=== PATIENT | male | born 1965 | race American Indian/Alaskan Native ===

== ENCOUNTER 2018-09-04 19:52 | Emergency (ER) | payer SELFPAY ==
[2018-09-04 19:52] VITALS: BMI 26.2
[2018-09-04 20:10] VITALS: RESP 20
[2018-09-04] MEDS ORDERED: Sodium Chloride 0.9% 2,000 ML IV ONE (20:35)
--- NOTE | 2018-09-04 20:35 | C.PDOC ---
History Of Present Illness The patient presents to the ED for evaluation of elevated blood sugar levels. Patient reports levels have been in 400s. He admits to being under a lot of stress and not eating well. Patient denies fever, chills, nausea, vomiting. Time Seen by Provider: 09/04/18 20:34 Chief Complaint (Nursing): High Blood Sugar History Per: Patient History/Exam Limitations: no limitations Onset/Duration Of Symptoms: Hrs Current Symptoms Are (Timing): Still Present Causative (Exacerbating) Factor(s): Missed A Meal, Other (increased stress ) Associated Infectious Symptoms: denies: Nausea, Vomiting Additional History Per: Patient Past Medical History Reviewed: Historical Data, Nursing Documentation, Vital Signs Vital Signs: Last Vital Signs Temp 98 F 09/04/18 20:01 Pulse 96 H 09/04/18 20:01 Resp 20 09/04/18 20:01 BP 144/76 09/04/18 20:01 Pulse Ox 100 09/04/18 20:01 - Medical History PMH: Diabetes Surgical History: No Surg Hx Family History: States: Unknown Family Hx - Social History Hx Tobacco Use: No Hx Alcohol Use: No Hx Substance Use: No - Immunization History Hx Tetanus Toxoid Vaccination: No Hx Influenza Vaccination: No Hx Pneumococcal Vaccination: No Review Of Systems Constitutional: Positive for: Other (elevated blood sugar levels ). Negative for: Fever, Chills Cardiovascular: Negative for: Chest Pain, Palpitations Respiratory: Negative for: Cough, Shortness of Breath Gastrointestinal: Negative for: Nausea, Vomiting, Abdominal Pain Genitourinary: Negative for: Dysuria, Frequency, Hematuria Skin: Negative for: Rash, Lesions, Jaundice, Bruising Neurological: Negative for: Weakness, Numbness, Confusion, Altered Mental Status, Headache, Dizziness Physical Exam - Physical Exam Appears: Non-toxic, No Acute Distress Skin: Warm, Dry Head: Normacephalic Eye(s): bilateral: Normal Inspection Oral Mucosa: Moist Neck: Supple Chest: Symmetrical, No Deformity, No Tenderness Cardiovascular: Rhythm Regular, No Murmur Respiratory: No Rales, No Rhonchi, No Wheezing Extremity: Normal ROM, Capillary Refill (less than 2 seconds ) Neurological/Psych: Oriented x3 ED Course And Treatment - Laboratory Results Result Diagrams: 09/04/18 20:40 09/04/18 20:40 O2 Sat by Pulse Oximetry: 100 (on RA ) Pulse Ox Interpretation: Normal Progress Note: bloodwork and urinalysis ordered. IV Fluids given. Reevaluation Time: 00:12 Reassessment Condition: Improved Disposition Counseled Patient/Family Regarding: Studies Performed, Diagnosis, Need For Followup - Disposition Referrals: Nighat Choi MD [Staff Provider] - Disposition: HOME/ ROUTINE Disposition Time: 20:35 Condition: FAIR Additional Instructions: Please check your sugars at least 4 times a day and keep a record Instructions: Hyperglycemia, Adult (DC) Forms: [employer] ([place]) - Clinical Impression Clinical Impression: Hyperglycemia - Scribe Statement The provider has reviewed the documentation as recorded by the Scribe (Ciera Marino) Provider Attestation: All medical record entries made by the Scribe were at my direction and personally dictated by me. I have reviewed the chart and agree that the record a ccurately reflects my personal performance of the history, physical exam, medical decision making, and the department course for this patient. I have also personally directed, reviewed, and agree with the discharge instructions and disposition.
[2018-09-04 20:52] LABS: BASO % 0.8 % (0.0-2.0); EOS % 0.6 % (0.0-4.0); LYMPH # 2.2 K/uL (1.0-4.3); LYMPH % 36.4 % (20.0-40.0); MEAN CORPUSCULAR HEMOGLOBIN 27.2 pg (27.0-31.0); MEAN CORPUSCULAR HGB CONC 32.5 g/dL (33.0-37.0); MONO # 0.3 K/uL (0.0-0.8); MONO % 5.8 % (0.0-10.0); NEUT # 3.3 K/uL (1.8-7.0); NEUT % 56.4 % (50.0-75.0); RBC 5.51 Mil/uL (4.40-5.90); RED CELL DISTRIBUTION WIDTH 13.8 % (11.5-14.5); WHITE BLOOD COUNT 5.9 K/uL (4.8-10.8)
[2018-09-04 20:54] LABS: MEAN CELL VOLUME 83.9 fL (80.0-94.0)
[2018-09-04 21:01] LABS: VENOUS BLOOD GAS BASE EXCESS -1.7 mmol/L (0.0-2.0); VENOUS BLOOD GAS PCO2 34 mmHg (40-60); VENOUS BLOOD GAS PO2 63 mm/Hg (30-55); VENOUS BLOOD PH 7.42 (7.32-7.43)
[2018-09-04 21:08] LABS: ALB/GLOB RATIO 1.6 (1.0-2.1); ALBUMIN 4.9 g/dL (3.5-5.0); ALT/SGPT 17 U/L (21-72); AST/SGOT 41 U/L (17-59); BLOOD UREA NITROGEN 13 mg/dL (9-20); CALCIUM 9.4 mg/dl (8.6-10.4); GFR NON-AFRICAN AMERICAN > 60; LIPASE 81 U/L (23-300)
[2018-09-04] MEDS ORDERED: Sodium Chloride 0.9% 2,000 ML ONE (21:54)
[2018-09-04 22:08] LABS: SQUAMOUS EPITHIAL < 1 /hpf (0-5); URINE BILIRUBIN NEGATIVE (NEGATIVE); URINE BLOOD NEGATIVE (NEGATIVE); URINE CLARITY Clear (Clear); URINE COLOR Straw (YELLOW); URINE GLUCOSE (UA) 3+ mg/dL (Normal); URINE LEUKOCYTE ESTERASE NEG Leu/uL (Negative); URINE PROTEIN NEGATIVE (NEGATIVE); URINE UROBILINOGEN NORMAL mg/dL (0.2-1.0)
[2018-09-05 00:40] VITALS: BP 136/74; PULSE 92; TEMP 97.9; O2SAT 98
== END 2018-09-05 00:39 | disposition home or self-care (01) ==
LOC: C.ER 19:52
DX: E11.65 Type 2 diabetes mellitus with hyperglycemia (principal)
CPT/HCPCS: 80053; 81001; 82009; 82803; 82948; 83036; 83690; 85025; 96360; 96361; 99284; J7030